=== PATIENT | female | born 1950 | race Caucasian/White ===

== ENCOUNTER 2020-02-08 09:20 | Day surgery (SDC) | payer MEDICARE, MEDICAID, SELFPAY ==
[2020-02-07 15:43] VITALS: BMI 28.4
[2020-02-08 09:30] VITALS: RESP 18; TEMP 36.1
--- NOTE | 2020-02-08 09:45 | ANES.PREANE2 ---
Pre-Anesthetic Assessment Pre-Anesthetic Assessment: Height/Weight: Height 1.68 m Weight 79.832 kg Temp Resp 97.0 F L 18 02/08/20 09:30 02/08/20 09:30 Preop Diagnosis: dys Proposed Procedure: Operation Date: 02/08/20 10:30 Proposed Procedures p EGD/colon [id number] R13.10 Z12.11(Not Applicable) - Presley Ayon MD s Colonoscopy(Not Applicable) - Presley Ayon MD Was Beta Asael taken within 24 hours: N/A Last intake: Intake Last Liquid Date 02/07/20 Last Liquid Time 17:00 Last Solid Date 02/07/20 Last Solid Time 13:00 Social: Social History: Alcohol (Daily ETOH (vodka)) and Tobacco Exam: Pre-Anes Outpt Exam: alert, oriented x 3, clear to auscultation bilaterally and regular rate & rhythm Airway: Submandibular: WNL Cervical ROM: WNL MP: 2 Dentition: Full Pulmonary: Pulmonary: COPD CV/HEM: CV/HEM: None reported : : None reported Hepatic: Hepatic: None reported GI: Comments: Dysphagia Metabolic: Metabolic: None reported Musc/skel: Musc/skel: None reported Neuropsych: Neuropsych: Depression Anesthetic Plan: ASA status: 3 Anesthesia: MAC Risk of > 500 ml blood loss (7ml/kg in children): No PFSH Anesthesia PFSH: Family History (Updated 01/31/20 @ 11:[address]) Brother Cancer Social History (Updated 01/31/20 @ 11:[address]) Smoking and tobacco status: current every day smoker Alcohol intake: current Alcohol intake frequency: 0-2 Drinks per Day Alcohol type: hard liquor Adopted: No Marital status: / service: No History of recent travel: No Current gender identity: Female Data Anesthesia Cardiac Studies: No Data to Display
[2020-02-08] MEDS: sodium chloride 0.9% 1,000 ML 30 ML IV (10:01)
[2020-02-08 11:47] VITALS: BP 130/82; PULSE 111; RESP 16; TEMP 36.1; O2SAT 95
--- NOTE | 2020-02-08 11:52 | ANE.PACU2 ---
Inpatient post-anesthesia follow up: Airway intact: Yes Vital signs: Temperature 97 F Pulse Rate 111 Respiratory Rate 16 Blood Pressure 130/82 Pulse Oximetry 95 Oxygen Delivery Me thod Nasal Cannula Oxygen Flow Rate 3 Fraction of Inspir ed Oxygen Hydration adequate: Yes Nausea and vomiting: No Pain level: 1 Mental status: Baseline
--- NOTE | 2020-02-08 11:52 | PM.PACU ---
PACU note PACU note: VSS Post-Anesthesia Exam: awake Disposition: discharged
[2020-02-08 11:56] VITALS: BP 137/88; PULSE 114; RESP 18; O2SAT 98
[2020-02-11 05:39] LABS: H. Pylori / CLO Test Negative
--- NOTE | 2020-02-12 12:22 | W.PM.OPSUD ---
Surgery/Procedure H&P Update DATE OF PROCEDURE: February 12, 2020 DATE H&P PERFORMED: 01/31/20 PREOP DIAGNOSIS: dys PLANNED PROCEDURE: Operation Date: 02/08/20 10:30 Proposed Procedures p EGD/colon [id number] R13.10 Z12.11(Not Applicable) - Presley Ayon MD s Colonoscopy(Not Applicable) - Presley Ayon MD
== END 2020-02-08 12:25 | disposition home or self-care (01) ==
PROVIDERS: PCP Family Medicine; Visit Provider Internal Medicine
PROC: 0DJ08ZZ Inspection of Upper Intestinal Tract, Via Natural or Artificial Opening Endoscopic (ICD-10-PCS; CPT 43235; principal; 2020-02-08 10:30)
PROC: 0DJD8ZZ Inspection of Lower Intestinal Tract, Via Natural or Artificial Opening Endoscopic (ICD-10-PCS; CPT 45378; 2020-02-08 10:30)
DX: Z12.11 Encounter for screening for malignant neoplasm of colon (principal); K21.0 Gastro-esophageal reflux disease with esophagitis; K29.50 Unspecified chronic gastritis without bleeding; J44.9 Chronic obstructive pulmonary disease, unspecified; F17.200 Nicotine dependence, unspecified, uncomplicated; Z88.2 Allergy status to sulfonamides
CPT/HCPCS: 12345; 43239; 45378; 87077; G0121; J0171; J2704; J7030